=== PATIENT | female | born 1950 | race Caucasian/White ===

== ENCOUNTER 2021-07-05 15:06 | Inpatient (IN) | payer OTHER ==
[~2021-07-05] VITALS: Ht 162.6 cm; Wt 99.5 kg
[2021-07-05 15:42] LABS: HEMOGLOBIN 14.3 gm/dl (12.3-15.3); RED BLOOD COUNT 6.17 M/UL (4.00-5.10); WHITE BLOOD COUNT 13.9 K/UL (4.5-11.0)
[2021-07-05 15:56] LABS: BUN/CREATININE RATIO 15 (0-10)
[2021-07-05 22:23] LABS: BORDETELLA PARAPERTUSSIS Not Detected (Not Detectd); BORDETELLA PERTUSSIS Not Detected (Not Detectd); CHLAMYDIA PNEUMONIAE Not Detected (Not Detectd); CORONAVIRUS HKU1 Not Detected (Not Detectd); CORONAVIRUS NL63 Not Detected (Not Detectd); CORONAVIRUS OC43 Not Detected (Not Detectd); CORONOAVIRUS 229E Not Detected (Not Detectd); HUMAN METAPNEUMOVIRUS Not Detected (Not Detectd); HUMAN RHINOVIRUS/ENTEROVIRUS Not Detected (Not Detectd); INFLUENZA A Not Detected (Not Detectd); INFLUENZA B Not Detected (Not Detectd); MYCOPLASMA PNEUMONIAE Not Detected (Not Detectd); PARAINFLUENZA VIRUS 1 Not Detected (Not Detectd); PARAINFLUENZA VIRUS 2 Not Detected (Not Detectd); PARAINFLUENZA VIRUS 3 Not Detected (Not Detectd); PARAINFLUENZA VIRUS 4 Not Detected (Not Detectd); RESPIRATORY SYNCYTIAL VIRUS Not Detected (Not Detectd)
[2021-07-05 23:50] LABS: SARS-CoV-2 NOT DETECTED (Not Detectd)
--- NOTE | 2021-07-06 05:32 | NUR ---
patient complains of rt hip/thigh hurting she has been on her back since 2129 states she does not usually sleep on her back I INSTRUCTED HER THAT SHE CAN LAY ON HER SIDE BUT SHE HAS NOT TURNED SHE ALSO HAS THE BIPAP ON , I HAS INFORMED THE MD OF THIS PATIENTS COMPLAINTS
--- NOTE | 2021-07-06 05:40 | NUR ---
PATIENT HAS NO SWELLING OF THE RIGHT LEG, NO REDNESS, AND NEGATIVE HOMANS SIGN.
[2021-07-06 10:09] LABS: HEMOGLOBIN 13.7 gm/dl (12.3-15.3); RED BLOOD COUNT 5.95 M/UL (4.00-5.10)
[2021-07-06 10:10] LABS: WHITE BLOOD COUNT 18.2 K/UL (4.5-11.0)
[2021-07-07 05:10] LABS: WHITE BLOOD COUNT 13.9 K/UL (4.5-11.0)
[2021-07-07 05:27] LABS: HEMOGLOBIN 11.7 gm/dl (12.3-15.3); RED BLOOD COUNT 5.17 M/UL (4.00-5.10)
[2021-07-08 03:46] LABS: HEMOGLOBIN 12.2 gm/dl (12.3-15.3); RED BLOOD COUNT 5.43 M/UL (4.00-5.10); WHITE BLOOD COUNT 11.5 K/UL (4.5-11.0)
[2021-07-08] MEDS ORDERED: ASPIRIN EC81 MG PO (08:43)
[2021-07-08] MEDS ORDERED: AUGMENTIN 875-1 EACH PO (08:43)
[2021-07-08] MEDS ORDERED: ATORVASTATIN CA20 MG PO (08:43)
[2021-07-08] MEDS ORDERED: HYDRALAZINE HCL25 MG PO (08:43)
[2021-07-08] MEDS ORDERED: LOPRESSOR 25 MG25 MG PO (08:43)
[2021-07-08] MEDS ORDERED: AMLODIPINE BESYL5 MG PO (08:43)
== END 2021-07-08 11:15 | disposition home or self-care (01) | DRG 871 ==
LOC: ER1 15:06 → CDU 19:01 → PROG CARE 19:01
PROVIDERS: Emergency Medicine; ADMIT Internal Medicine
PROC: 3E0333Z Introduction of Anti-inflammatory into Peripheral Vein, Percutaneous Approach (ICD-10-PCS; principal; 2021-07-05)
PROC: 5A09357 Assistance with Respiratory Ventilation, Less than 24 Consecutive Hours, Continuous Positive Airway Pressure (ICD-10-PCS; 2021-07-05)
PROC: 5A0935A Assistance with Respiratory Ventilation, Less than 24 Consecutive Hours, High Flow/Velocity Cannula (ICD-10-PCS; 2021-07-05)
PROC: B24BZZZ Ultrasonography of Heart with Aorta (ICD-10-PCS; 2021-07-06)
DX: A41.9 Sepsis, unspecified organism (principal); J18.9 Pneumonia, unspecified organism; J96.01 Acute respiratory failure with hypoxia; I21.A1 Myocardial infarction type 2; N17.9 Acute kidney failure, unspecified; E87.2 Acidosis; Z20.822 Contact with and (suspected) exposure to COVID-19; R65.20 Severe sepsis without septic shock; I11.0 Hypertensive heart disease with heart failure; E66.9 Obesity, unspecified; I50.9 Heart failure, unspecified; I16.0 Hypertensive urgency; E78.5 Hyperlipidemia, unspecified; J98.4 Other disorders of lung; G43.909 Migraine, unspecified, not intractable, without status migrainosus; Z79.82 Long term (current) use of aspirin; Z79.2 Long term (current) use of antibiotics; Z90.710 Acquired absence of both cervix and uterus; Z82.49 Family history of ischemic heart disease and other diseases of the circulatory system; Z68.37 Body mass index [BMI] 37.0-37.9, adult
CPT/HCPCS: ECHO; 36415; 36600; 71045; 78452; 80048; 80053; 80061; 82550; 82553; 82803; 83036; 83605; 83880; 84439; 84443; 84484; 85025; 85730; 86140; 87040; 87633; 93005; 93306; 94640; 94660; 94664; 94760; 96374; 96375; 99285; J0360; J0456; J0696; J1100; J1644; J1650; J1940; J2185; J2785; J3370; J7030; J7070; Q9967; U0002